=== PATIENT | male | born 1980 | race Caucasian/White ===

== ENCOUNTER 2017-01-01 17:07 | Inpatient (IN) | payer BC ==
[2017-01-01] MEDS ORDERED: Sodium Chloride 0.9% 1,000 ML IV ONE (18:59)
[2017-01-01 19:32] LABS: CHLORIDE,CL 97 mmol/L (101-111); SODIUM,NA 134 mmol/L (135-145)
[2017-01-01] MEDS ORDERED: Dexamethasone 4 MG/ML SDV IVPUSH ONE ×2 (19:56→22:10)
[2017-01-01] MEDS: Dexamethasone 4 MG/ML SDV IVPUSH ONE ×2 (19:56→19:59)
[2017-01-01] MEDS ORDERED: cefTRIAXone 1 GM in Sodium Chloride 0.9% 50 ML IV ONE (20:55)
[2017-01-01] MEDS ORDERED: Ampicillin/Sulbactam Na 3 GM in Sodium Chloride 0.9% 100 ML IV ONE (21:15)
--- NOTE | 2017-01-01 21:40 | EDM.PDOC ---
ED HPI GENERAL MEDICAL PROBLEM - General Chief Complaint: General Stated Complaint: ALLERGIC REACTION AIRWAY STARTING TO GET BLOCKED Time Seen by Provider: 01/01/17 19:05 Source of Information: Reports: Patient History Limitations: Reports: No Limitations - History of Present Illness INITIAL COMMENTS - FREE TEXT/NARRATIVE: ED with c/o difficulty swallowing , swelling left jaw , difficult to open mouth. low grade temp tonight 100 at home. No difficulty with breathing No recent sore throat or dental problems. Onset: other (yesterday) Location: Reports: head, face Quality: Reports: Throbbing Severity: moderate Worsens with: Reports: Eating Associated Symptoms: Denies: chest pain, cough, cough w sputum, diaphoresis, headaches, malaise, nausea/vomiting, shortness of breath, weakness Oral/Mouth Pain Score (Numeric/FACES): 5 - Related Data Allergies Allergy/AdvReac Type Severity Reaction Status Date / Time No Known Allergies Allergy Verified 01/01/17 18:27 Home Meds: Home Meds . [No Known Home Meds] 01/01/17 [History] Past Medical History HEENT History: Reports: None Cardiovascular History: Reports: None Respiratory History: Reports: None Gastrointestinal History: Reports: None Genitourinary History: Reports: None Musculoskeletal History: Reports: None Neurological History: Reports: None Psychiatric History: Reports: None Endocrine/Metabolic History: Reports: None Hematologic History: Reports: None Immunologic History: Reports: None Oncologic (Cancer) History: Reports: None Dermatologic History: Reports: None - Past Surgical History Head Surgeries/Procedures: Reports: None Social & Family History - Tobacco Use Smoking Status *Q: Current Every Day Smoker Years of Tobacco use: 20 Packs/Tins Daily: 0.5 Second Hand Smoke Exposure: No - Caffeine Use Caffeine Use: Reports: Coffee, Soda, Tea - Recreational Drug Use Recreational Drug Use: No ED ROS GENERAL - Review of Systems Review Of Systems: See Below Constitutional: Reports: Chills HEENT: Reports: Other (left jaw swollen pain, left side of neck swollen tender) Respiratory: Reports: No Symptoms Cardiovascular: Reports: No Symptoms Endocrine: Reports: No Symptoms GI/Abdominal: Reports: No Symptoms Musculoskeletal: Reports: No Symptoms, Other (achy 2 days ago) Skin: Reports: No Symptoms Neurological: Reports: No Symptoms ED EXAM, GENERAL - Physical Exam Exam: See Below Exam Limited By: No Limitations General Appearance: Alert, Moderate Distress Eye Exam: Bilateral Eye: PERRL Ears: Normal External Exam, Normal TMs Nose: Normal Inspection, Normal Mucosa Throat/Mouth: Inflammation, Other (swelling left floor of mouth, tongue wnl, dentation fair, no obvious signs of abscess, limited exam as patient unable to fully open mouth. ). No: Normal Inspection Head: Atraumatic, Normocephalic, Facial Swelling, Facial Tenderness (left lower jaw) Neck: Lymphadenopathy (L), Other (prominent submandibular glands, tender) Respiratory/Chest: No Respiratory Distress, Lungs Clear, Normal Breath Sounds Cardiovascular: Normal Peripheral Pulses, Regular Rate, Rhythm GI/Abdominal: Normal Bowel Sounds Back Exam: Normal Inspection Extremities: Normal Inspection, Normal Range of Motion Neurological: Alert, Oriented, Normal Cognition Psychiatric: Normal Affect, Normal Mood Skin Exam: Warm, Dry, Intact, Normal Color. No: No Rash, Petechiae Course - Vital Signs Last Recorded V/S: Last Vital Signs Temp 97.6 F 01/01/17 18: Pulse 83 01/01/17 20:29 Resp 18 01/01/17 20:29 BP 151/90 H 01/01/17 20:29 Pulse Ox 100 01/01/17 20:29 - Orders/Labs/Meds Orders: Active Orders 24 hr Category Date Time Status CULTURE BLOOD [BC] Stat Lab 01/01/17 19:36 Received CULTURE BLOOD [BC] Stat Lab 01/01/17 19:40 Received Ampicillin/Sulbactam Na [Unasyn] 3 gm Med 01/02/17 03:00 Active Sodium Chloride 0.9% [Normal Saline] 100 ml IV Q6H Blood Culture x2 Reflex Set [OM.PC] Stat Oth 01/01/17 19:16 Ordered Medication Orders Acetaminophen (Tylenol) 650 mg PO Q4H PRN PRN Reason: Pain (Mild 1-3)/fever Hydrocodone Bitart/Acetaminophen ([place] 325-10 Mg) 1 tab PO Q4H PRN PRN Reason: Pain (moderate 4-6) Enoxaparin Sodium (Lovenox) 40 mg SUBCUT DAILY [facility] Ampicillin Sodium/Sulbactam (Sodium 3 gm/ Sodium Chloride) 100 mls @ 100 mls/ hr IV Q6H JONATHAN Sodium Chloride (Normal Saline) 1,000 mls @ 125 mls/hr IV ASDIRECTED JONATHAN Morphine Sulfate (Morphine) 2 mg IVPUSH Q2H PRN PRN Reason: Pain (severe 7-10) Ondansetron HCl (Zofran) 4 mg IVPUSH Q6H PRN PRN Reason: Nausea/Vomiting Polyethylene Glycol (Miralax) 17 gm PO DAILY PRN PRN Reason: Constipation Promethazine HCl (Phenergan) 12.5 mg IM Q6H PRN PRN Reason: Nausea/Vomiting Zolpidem Tartrate (Ambien) 5 mg PO BEDTIME PRN PRN Reason: Sleep Labs: Laboratory Tests 01/01/17 01/01/17 01/01/17 Range/Units 19:04 19:04 19:04 WBC 21.4 H (5.0-10.0) 10^3/uL RBC 5.40 (4.6-6.2) 10^6/uL Hgb 15.8 (14.0-18.0) g/dL Hct 46.4 (40.0-54.0) % MCV 85.9 (80-100) fL MCH 29.3 (27.0-34.0) pg MCHC 34.1 (33.0-35.0) g/dL Plt Count 219 (150-450) 10^3/uL Neut % (Auto) 81.8 H (42.2-75.2) % Lymph % (Auto) 8.1 L (20.5-50.1) % [place] % (Auto) 9.5 H (2-8) % Eos % (Auto) 0.3 L (1.0-3.0) % Baso % (Auto) 0.3 (0.0-1.0) % Sodium 134 L (135-145) mmol/L Potassium 3.7 (3.6-5.0) mmol/L Chloride 97 L (101-111) mmol/L Carbon Dioxide 28.0 (21.0-31.0) mmol/L Anion Gap 12.7 BUN 7 (7-18) mg/dL Creatinine 0.7 (0.6-1.3) mg/dL Est Cr Clr Drug Dosing 177.72 mL/min Estimated GFR (MDRD) > 60 BUN/Creatinine Ratio 10.00 Glucose 92 (74-105) mg/dL Lactic Acid (0.5-2.2) mmol/L Calcium 9.3 (8.4-10.2) mg/dl Total Bilirubin 1.5 H (0.2-1.0) mg/dL AST 19 (10-42) IU/L ALT 17 (10-60) IU/L Alkaline Phosphatase 85 (42-121) IU/L C-Reactive Protein > 20.0 H (0.0-1.3) mg/dL Total Protein 8.2 (6.7-8.2) g/dl Albumin 4.6 (3.2-5.5) g/dl Globulin 3.6 Albumin/Globulin Ratio 1.28 Amylase (28-100) U/L Lipase (22-51) U/L 01/01/17 01/01/17 Range/Units 19:04 19:36 WBC (5.0-10.0) 10^3/uL RBC (4.6-6.2) 10^6/uL Hgb (14.0-18.0) g/dL Hct (40.0-54.0) % MCV (80-100) fL MCH (27.0-34.0) pg MCHC (33.0-35.0) g/dL Plt Count (150-450) 10^3/uL Neut % (Auto) (42.2-75.2) % Lymph % (Auto) (20.5-50.1) % [place] % (Auto) (2-8) % Eos % (Auto) (1.0-3.0) % Baso % (Auto) (0.0-1.0) % Sodium (135-145) mmol/L Potassium (3.6-5.0) mmol/L Chloride (101-111) mmol/L Carbon Dioxide (21.0-31.0) mmol/L Anion Gap BUN (7-18) mg/dL Creatinine (0.6-1.3) mg/dL Est Cr Clr Drug Dosing mL/min Estimated GFR (MDRD) BUN/Creatinine Ratio Glucose (74-105) mg/dL Lactic Acid 0.9 (0.5-2.2) mmol/L Calcium (8.4-10.2) mg/dl Total Bilirubin (0.2-1.0) mg/dL AST (10-42) IU/L ALT (10-60) IU/L Alkaline Phosphatase (42-121) IU/L C-Reactive Protein (0.0-1.3) mg/dL Total Protein (6.7-8.2) g/dl Albumin (3.2-5.5) g/dl Globulin Albumin/Globulin Ratio Amylase 25 L (28-100) U/L Lipase 17 L (22-51) U/L Meds: Medications Generic Name Dose Route Start Last Admin Trade Name Tyrellq PRN Reason Stop Dose Admin Acetaminophen 650 mg 01/01/17 22:54 Tylenol PO Q4H PRN Pain (Mild 1-3)/fever Hydrocodone Bitart/Acetaminophen 1 tab 01/01/17 22:54 [place] 325-10 Mg PO Q4H PRN Pain (moderate 4-6) Enoxaparin Sodium 40 mg 01/02/17 09:00 Lovenox SUBCUT DAILY [facility] Ampicillin Sodium/Sulbactam 100 mls @ 100 mls/hr 01/02/17 03:00 Sodium 3 gm/ Sodium Chloride IV Q6H [facility] Sodium Chloride 1,000 mls @ 125 mls/hr 01/01/17 23:00 Normal Saline IV ASDIRECTED [facility] Morphine Sulfate 2 mg 01/01/17 22:54 Morphine IVPUSH Q2H PRN Pain (severe 7-10) Ondansetron HCl 4 mg 01/01/17 22:54 Zofran IVPUSH Q6H PRN Nausea/Vomiting Polyethylene Glycol 17 gm 01/01/17 22:54 Miralax PO DAILY PRN Constipation Promethazine HCl 12.5 mg 01/01/17 22:54 Phenergan IM Q6H PRN Nausea/Vomiting Zolpidem Tartrate 5 mg 01/01/17 22:54 Ambien PO BEDTIME PRN Sleep Discontinued Medications Generic Name Dose Route Start Last Admin Trade Name Tyrellq PRN Reason Stop Dose Admin Dexamethasone 20 mg 01/01/17 19:17 01/01/17 19:59 Dexamethasone IVPUSH 01/01/17 19:18 Not Given ONETIME ONE Dexamethasone 10 mg 01/01/17 19:56 01/01/17 19:59 Dexamethasone IVPUSH 01/01/17 19:57 10 mg ONETIME ONE Administration Dexamethasone 10 mg 01/01/17 22:10 01/01/17 22:26 Dexamethasone IVPUSH 01/01/17 22:11 10 mg ONETIME ONE Administration Sodium Chloride 1,000 mls @ 999 mls/hr 01/01/17 18:59 01/01/17 19:46 Normal Saline IV 01/01/17 19:59 999 mls/hr .BOLUS ONE Administration Ceftriaxone Sodium 1 gm/ 50 mls @ 100 mls/hr 01/01/17 20:55 01/01/17 21:04 Sodium Chloride IV 01/01/17 21:24 100 mls/hr ONETIME ONE Administration Ampicillin Sodium/Sulbactam 100 mls @ 100 mls/hr 01/01/17 21:15 01/01/17 21: 45 Sodium 3 gm/ Sodium Chloride IV 01/01/17 22:14 100 mls/hr ONETIME ONE Administration - Radiology Interpretation Free Text/Narrative:: CT soft tissue neck with inflammation and swelling submandibular gland, airway patent No signs of ductal stones. No obvious abscess. - Re-Assessments/Exams Free Text/Narrative Re-Assessment/Exam: 01/01/17 Dr. Graham here to assess patient . Accepting for admission Departure - Departure Time of Disposition: 22:40 Disposition: Admitted As Inpatient 68 Condition: good Clinical Impression: Submandibular gland infection Leukocytosis Qualifiers: Leukocytosis type: bandemia Qualified Code(s): D72.825 - Bandemia - Discharge Information - My Orders Last 24 Hours: My Active Orders 01/01/17 19:16 Blood Culture x2 Reflex Set [OM.PC] Stat 01/01/17 19:36 CULTURE BLOOD [BC] Stat 01/01/17 19:40 CULTURE BLOOD [BC] Stat - Assessment/Plan Last 24 Hours: My Active Orders 01/01/17 19:16 Blood Culture x2 Reflex Set [OM.PC] Stat 01/01/17 19:36 CULTURE BLOOD [BC] Stat 01/01/17 19:40 CULTURE BLOOD [BC] Stat
[2017-01-01] MEDS ORDERED: Promethazine 25 MG/ML SDV IM PRN (22:54)
[2017-01-01] MEDS ORDERED: Acetaminophen 325 MG Tab PO PRN (22:54)
[2017-01-01] MEDS ORDERED: Zolpidem 5 MG Tab PO PRN (22:54)
[2017-01-01] MEDS ORDERED: Ondansetron 4 MG/2 ML SDV IVPUSH PRN (22:54)
[2017-01-01] MEDS ORDERED: Polyethylene Glycol 3350 Powder 17 GM Packet PO PRN (22:54)
[2017-01-01] MEDS ORDERED: Morphine 2 MG/ML Syringe IVPUSH PRN (22:54)
[2017-01-01] MEDS ORDERED: Acetaminophen/HYDROcodone 325-10 MG Tab PO PRN (22:54)
[2017-01-01] MEDS ORDERED: Sodium Chloride 0.9% 1,000 ML IV SCH (23:00)
--- NOTE | 2017-01-01 23:07 | PCM.HP ---
H&P History of Present Illness - General Date of Service: 01/01/17 Admit Problem/Dx: Admission Diagnosis/Problem Admission Diagnosis/Problem Facial swelling Source of Information: Patient History Limitations: Reports: No Limitations - History of Present Illness Initial Comments - Free Text/Narative: visit 6-year-old male without significant past medical history presented to the emergency room for having facial swelling and pain, difficulty swallowing, feeling warm and cold. Patient stated since yesterday morning he notes swelling on the left side of his lower jaw and start having difficulty swallowing. The difficulty swallowing progressed and he was only able to drink water and eat soft foods after chewing it for long time. The swelling got worse. He reported left lower jaw pain rated at 5/10, throbbing pain. he denies difficulty breathing, feeling throat is closing, sinus congestion, ear pain, headache, shortness of breath, chest pain, nausea, vomiting, or any other symptoms. in the emergency room he had CT scan of the face which could not exclude submandibular abscess. laboratory workup showed WBC 21.4. Sodium 134. Potassium 3.7. Creatinine 0.7. Lactic acid 0.9. Bilirubin 1.5. CRP more than 20. Patient received 20 mg of Decadron and he felt better afterwards and he was able to swallow better. He also received Rocephin and Unasyn IV and was admitted to the hospital. on exam patient was found to have left lower wisdom teeth caries which patient was not aware of. He denies recent dental work. His breath smelled like feces. Oral/Mouth Pain Score (Numeric/FACES): 5 - Related Data Allergies/Adverse Reactions: Allergies Allergy/AdvReac Type Severity Reaction Status Date / Time No Known Allergies Allergy Verified 01/01/17 18:27 Home Medications: Home Meds . [No Known Home Meds] 01/01/17 [History] Past Medical History HEENT History: Reports: None Cardiovascular History: Reports: None Respiratory History: Reports: None Gastrointestinal History: Reports: None Genitourinary History: Reports: None Musculoskeletal History: Reports: None Neurological History: Reports: None Psychiatric History: Reports: None Endocrine/Metabolic History: Reports: None Hematologic History: Reports: None Immunologic History: Reports: None Oncologic (Cancer) History: Reports: None Dermatologic History: Reports: None - Past Surgical History Head Surgeries/Procedures: Reports: None Social & Family History - Tobacco Use Smoking Status *Q: Current Every Day Smoker Years of Tobacco use: 20 Packs/Tins Daily: 0.5 Second Hand Smoke Exposure: No - Caffeine Use Caffeine Use: Reports: Coffee, Soda, Tea - Recreational Drug Use Recreational Drug Use: No H&P Review of Systems - Review of Systems: Review Of Systems: See Below General: Denies: Night Sweats, Diaphoresis, Weight Loss, Weight Gain HEENT: Denies: Ear Pain, Eye Pain, Headaches, Hearing Changes, Rhinitis, Post Nasal Drip, Sinus Congestion, Vertigo, Visual Changes Pulmonary: Reports: No Symptoms Cardiovascular: Reports: No Symptoms Gastrointestinal: Reports: No Symptoms Genitourinary: Reports: No Symptoms Musculoskeletal: Reports: No Symptoms Skin: Reports: No Symptoms Psychiatric: Reports: No Symptoms Neurological: Reports: No Symptoms Hematologic/Lymphatic: Reports: No Symptoms Immunologic: Reports: No Symptoms Exam - Exam Exam: See Below - Vital Signs Vital Signs: Last Vital Signs Temp 36.4 C 01/01/17 18: Pulse 83 01/01/17 20:29 Resp 18 01/01/17 20:29 BP 151/90 H 01/01/17 20:29 Pulse Ox 100 01/01/17 20:29 Weight: 117.934 kg - Exam General: Alert, Oriented, Cooperative, Mild Distress, Other (his voice was mildly muffled). No: Moderate Distress, Severe Distress, Sedated, Lethargic, Obtunded HEENT: Conjunctiva Clear, EACs Clear, EOMI, Hearing Intact, Mucosa Moist & [place] , Nares Patent, Normal Nasal Septum, Posterior Pharynx Clear, Pupils Equal, Pupils Reactive, TMs Clear, Other (he had significant submandibular swelling, mostly on left side with only mild tenderness. He was not able to open his mouth completely but one could pass one finger and half in his mouth. His left lower wisdom teeth had significant caries with swelling around it. No fluctuation was appreciated), PERRLA Neck: Supple, Trachea Midline, Full Range of Motion. No: JVD Lungs: Clear to Auscultation, Normal Respiratory Effort. No: Decreased Breath Sounds, Crackles, Rales, Rhonchi, Rub, Stridor, Wheezing Cardiovascular: Regular Rate, Regular Rhythm Abdomen: Normal Bowel Sounds, Soft, Pelvis Stable (Male) Exam: Deferred Rectal (Males) Exam: Deferred Back Exam: Normal Inspection, Full Range of Motion Extremities: Normal Inspection, Normal Pulses. No: Clubbing, Cyanosis Neurological: Cranial Nerves Intact, Reflexes Equal Bilateral Neuro Extensive - Mental Status: Alert, Oriented x3, Normal Mood/Affect, Normal Cognition, Memory Intact Neuro Extensive - Motor, Sensory, Reflexes: CN II-XII Intact, Normal Gait, Normal Reflexes Psychiatric: Alert, Normal Affect, Normal Mood - Patient Data Result Diagrams: 01/01/17 19:04 01/01/17 19:04 *Q Meaningful Use (ADM) - VTE *Q VTE Criteria *Q: - Stroke *Q Stroke Criteria *Q: - AMI *Q AMI Criteria *Q: Problem List Initiated/Reviewed/Updated: Yes Orders Last 24hrs: Active Orders 24 hr Category Date Time Status Patient Status [ADT] Routine ADT 01/01/17 22:54 Ordered Intake and Output [RC] QSHIFT Care 01/01/17 22:56 Ordered Oxygen Therapy [RC] PRN Care 01/01/17 22:54 Ordered Pulse Oximetry [RC] CONTINUOUS Care 01/01/17 22:56 Ordered Up ad Tisha [RC] ASDIRECTED Care 01/01/17 22:54 Ordered VTE/DVT Education [RC] PER UNIT ROUTINE Care 01/01/17 22:54 Ordered Vital Signs [RC] Q4H Care 01/01/17 22:54 Ordered Regular Diet [DIET] Diet 01/01/17 Breakfast Ordered BASIC METABOLIC PANEL,BMP [CHEM] AM Lab 01/02/17 05:11 Ordered CBC WITH AUTO DIFF [HEME] AM Lab 01/02/17 05:11 Ordered CRP [C-REACTIVE PROTEIN] [CHEM] AM Lab 01/02/17 05:11 Ordered Acetaminophen [Tylenol] Med 01/01/17 22:54 Ordered 650 mg PO Q4H PRN Acetaminophen/HYDROcodone [[place] 325-10 MG] Med 01/01/17 22:54 Ordered 1 tab PO Q4H PRN Ampicillin/Sulbactam Na [Unasyn] 3 gm Med 01/02/17 00:00 Ordered Sodium Chloride 0.9% [Normal Saline] 100 ml IV Q6HR Enoxaparin [Lovenox] Med 01/02/17 09:00 Ordered 40 mg SUBCUT DAILY Morphine Med 01/01/17 22:54 Ordered 2 mg IVPUSH Q2H PRN Ondansetron [Zofran] Med 01/01/17 22:54 Ordered 4 mg IVPUSH Q6H PRN Polyethylene Glycol 3350 [MiraLAX] Med 01/01/17 22:54 Ordered 17 gm PO DAILY PRN Promethazine [Phenergan] Med 01/01/17 22:54 Ordered 12.5 mg IM Q6H PRN Sodium Chloride 0.9% @ 125 MLS/HR (1000ml) Med 01/01/17 23:00 Ordered Sodium Chloride 0.9% [Normal Saline] 1,000 ml IV ASDIRECTED Zolpidem [Ambien] Med 01/01/17 22:54 Ordered 5 mg PO BEDTIME PRN Resuscitation Status Routine Resus Stat 01/01/17 22:54 Ordered Assessment/Plan Comment:: sepsis, Most likely from dental infection he received 1 L of normal saline in the emergency room as a bolus Unasyn 3 g every 6 hours -Awaiting blood culture results -IV fluid infusion facial infection, most likely from dental infection Treat as above Acetaminophen/hydrocodone for pain as needed Trismus Most likely from dental infection patient received Decadron 20 mg IV in the emergency room Will watch clinically difficulty swallowing from facial infection Treat as above Lovenox for DVT prophylaxis he is full code
[2017-01-02] MEDS ORDERED: Ampicillin/Sulbactam Na 3 GM in Sodium Chloride 0.9% 100 ML IV SCH (03:00)
[2017-01-02] MEDS: Ampicillin/Sulbactam Na 3 GM in Sodium Chloride 0.9% 100 ML IV SCH ×4 (04:12→23:05)
[2017-01-02 06:54] LABS: CHLORIDE,CL 101 mmol/L (101-111); SODIUM,NA 135 mmol/L (135-145)
--- NOTE | 2017-01-02 09:48 | PCM.PN ---
- General Info Date of Service: 01/02/17 Admission Dx/Problem (Free Text): Admission Diagnosis/Problem Admission Diagnosis/Problem Facial swelling Subjective Update: patient is feeling better. He was able to eat regular breakfast and swallow it without significant discomfort. He declined any significant pain. He denies fever, chills, nausea, vomiting, difficulty breathing, shortness breath, chest pain, headache. - Patient Data Vitals - most recent: Last Vital Signs Temp 36.4 C 01/02/17 07:00 Pulse 77 01/02/17 07:00 Resp 20 01/02/17 07:00 BP 119/70 01/02/17 07:00 Pulse Ox 98 01/02/17 07:00 Weight - most recent: 117.934 kg I&O - last 24 hours: Intake & Output 01/01/17 01/02/17 01/02/17 22:59 06:59 14:59 Intake Total 100 822 Balance 100 822 Lab Results last 24 hrs: Laboratory Results - last 24 hr 01/02/17 01/02/17 01/02/17 Range/Units 06:08 06:08 06:08 WBC 17.0 H (5.0-10.0) 10^3/uL RBC 4.73 (4.6-6.2) 10^6/uL Hgb 13.8 L (14.0-18.0) g/dL Hct 41.2 (40.0-54.0) % MCV 87.1 (80-100) fL MCH 29.2 (27.0-34.0) pg MCHC 33.5 (33.0-35.0) g/dL Plt Count 218 (150-450) 10^3/uL Neut % (Auto) 90.9 H (42.2-75.2) % Lymph % (Auto) 5.8 L (20.5-50.1) % [place] % (Auto) 3.1 (2-8) % Eos % (Auto) 0.0 L (1.0-3.0) % Baso % (Auto) 0.2 (0.0-1.0) % Sodium 135 (135-145) mmol/L Potassium 4.0 (3.6-5.0) mmol/L Chloride 101 (101-111) mmol/L Carbon Dioxide 27.0 (21.0-31.0) mmol/L Anion Gap 11.0 BUN 10 (7-18) mg/dL Creatinine 0.7 (0.6-1.3) mg/dL Est Cr Clr Drug Dosing 177.72 mL/min Estimated GFR (MDRD) > 60 Glucose 149 H (74-105) mg/dL Calcium 8.7 (8.4-10.2) mg/dl C-Reactive Protein 18.5 H (0.0-1.3) mg/dL Med Orders - Current: Current Medications Acetaminophen (Tylenol) 650 mg PO Q4H PRN PRN Reason: Pain (Mild 1-3)/fever Hydrocodone Bitart/Acetaminophen ([place] 325-10 Mg) 1 tab PO Q4H PRN PRN Reason: Pain (moderate 4-6) Enoxaparin Sodium (Lovenox) 40 mg SUBCUT DAILY [facility] Ampicillin Sodium/Sulbactam (Sodium 3 gm/ Sodium Chloride) 100 mls @ 100 mls/ hr IV Q6H [facility] Last Admin: 01/02/17 04:12 Dose: 100 mls/hr Morphine Sulfate (Morphine) 2 mg IVPUSH Q2H PRN PRN Reason: Pain (severe 7-10) Ondansetron HCl (Zofran) 4 mg IVPUSH Q6H PRN PRN Reason: Nausea/Vomiting Polyethylene Glycol (Miralax) 17 gm PO DAILY PRN PRN Reason: Constipation Promethazine HCl (Phenergan) 12.5 mg IM Q6H PRN PRN Reason: Nausea/Vomiting Zolpidem Tartrate (Ambien) 5 mg PO BEDTIME PRN PRN Reason: Sleep Discontinued Medications Dexamethasone (Dexamethasone) 20 mg IVPUSH ONETIME ONE Stop: 01/01/17 19:18 Last Admin: 01/01/17 19:59 Dose: Not Given Dexamethasone (Dexamethasone) 10 mg IVPUSH ONETIME ONE Stop: 01/01/17 19:57 Last Admin: 01/01/17 19:59 Dose: 10 mg Dexamethasone (Dexamethasone) 10 mg IVPUSH ONETIME ONE Stop: 01/01/17 22:11 Last Admin: 01/01/17 22:26 Dose: 10 mg Sodium Chloride (Normal Saline) 1,000 mls @ 999 mls/hr IV .BOLUS ONE Stop: 01/01/17 19:59 Last Admin: 01/01/17 19:46 Dose: 999 mls/hr Ceftriaxone Sodium 1 gm/ (Sodium Chloride) 50 mls @ 100 mls/hr IV ONETIME ONE Stop: 01/01/17 21:24 Last Admin: 01/01/17 21:04 Dose: 100 mls/hr Ampicillin Sodium/Sulbactam (Sodium 3 gm/ Sodium Chloride) 100 mls @ 100 mls/ hr IV ONETIME ONE Stop: 01/01/17 22:14 Last Admin: 01/01/17 21:45 Dose: 100 mls/hr Ampicillin Sodium/Sulbactam (Sodium 3 gm/ Sodium Chloride) 100 mls @ 100 mls/ hr IV Q6H JONATHAN Sodium Chloride (Normal Saline) 1,000 mls @ 125 mls/hr IV ASDIRECTED JONATHAN Last Admin: 01/01/17 23:53 Dose: 125 mls/hr - Exam General: alert, oriented, cooperative, no acute distress, other (he looks better today. He is breathing and speaking normally. His facial swelling mildly improved) HEENT: Pupils equal, Pupils reactive, EOMI, Mucous membr. moist/pink, Other (he is able to open his mouth more than yesterday, I was able to see his upper half of uvula and posterior pharynx without tongue depressor. His left lower jaw swelling improved but he still has the same submandibular swelling.) Neck: supple, trachea midline, no JVD Lungs: Clear to auscultation, Normal respiratory effort. No: Decreased breath sounds, Crackles, Rales, Rhonchi, Rub, Stridor, Wheezing Cardiovascular: Regular Rate, Regular Rhythm Abdomen: bowel sounds present, soft, no tenderness, no distension Back Exam: Normal Inspection, Full Range of Motion Extremities: no edema, normal pulses, no tenderness/swelling, no clubbing, no cyanosis Skin: warm, dry, intact Neurological: no new focal deficit Psy/Mental Status: alert, normal affect, normal mood - Problem List Review Problem List Initiated/Reviewed/Updated: Yes - My Orders Last 24 Hours: My Active Orders 01/02/17 04:00 Ampicillin/Sulbactam Na [Unasyn] 3 gm Sodium Chloride 0.9% [Normal Saline] 100 ml IV Q6H 01/03/17 05:11 CBC WITH AUTO DIFF [HEME] AM COMPREHENSIVE METABOLIC PN,CMP [CHEM] AM CRP [C-REACTIVE PROTEIN] [CHEM] AM - Plan Plan:: Sepsis, Most likely from dental infection he received 1 L of normal saline in the emergency room as a bolus -continue Unasyn 3 g every 6 hours -Awaiting blood culture results -stop IV fluid infusion and encourage oral intake Facial infection, most likely from dental infection Treat as above Acetaminophen/hydrocodone for pain as needed Trismus Most likely from dental infection patient received Decadron 20 mg IV in the emergency room Will watch clinically Difficulty swallowing from facial infection Treat as above Dental caries He was advised to call a dentist today and schedule appointment as soon as possible next week. he said he will do the arrangement on his own [employer] for DVT prophylaxis he is full code
[2017-01-02] MEDS: Enoxaparin 40 MG/0.4 ML Syringe SUBCUT SCH (10:02)
[2017-01-03] MEDS ORDERED: Sodium Chloride 0.9% 10 ML Syringe FLUSH PRN (00:22)
[2017-01-03] MEDS: Ampicillin/Sulbactam Na 3 GM in Sodium Chloride 0.9% 100 ML IV SCH ×2 (04:29→10:36)
[2017-01-03 07:16] LABS: CHLORIDE,CL 105 mmol/L (101-111); SODIUM,NA 139 mmol/L (135-145)
[2017-01-03] MEDS: Enoxaparin 40 MG/0.4 ML Syringe SUBCUT SCH ×2 (10:36→10:52)
[2017-01-03 11:45] VITALS: BP 131/76
--- NOTE | 2017-01-03 11:58 | PCM.DCSUM1 ---
Discharge Summary - Hospital Course Free Text/Narrative:: 36-year-old male without significant past medical history presented to the emergency room for having facial swelling and pain, difficulty swallowing, feeling warm and cold. Patient stated the day prior to admission he noticed swelling on the left side of his lower jaw and started having difficulty swallowing. The difficulty swallowing progressed and he was only able to drink water and eat soft foods after chewing it for long time. The swelling got worse. He reported left lower jaw pain rated at 5/10, throbbing pain. he denied difficulty breathing, feeling throat was closing, sinus congestion, ear pain, headache, shortness of breath, chest pain, nausea, vomiting, or any other symptoms. In the emergency room he had CT scan of the face which could not exclude submandibular abscess. on admission laboratory workup showed WBC 21.4. Sodium 134. Potassium 3.7. Creatinine 0.7. Lactic acid 0.9. Bilirubin 1.5. CRP more than 20. Patient received 20 mg of Decadron and he felt better afterwards and he was able to swallow better. in ER he received Rocephin and Unasyn IV and was admitted to the hospital. on exam patient was found to have left lower wisdom teeth caries which patient was not aware of. He denies recent dental work. His breath smelled like feces. he continued on Unasyn. patient dramatically got better and is swelling almost gone. He is eating normally and has no complaint. His WBC continued to be elevated but CRP markedly improved. Patient had set up appointment with dentist on upcoming Thursday. 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 he was discharged on Augmentin. He denies any pain since yesterday plan of care during hospitalization: Sepsis, Most likely from dental infection he received 1 L of normal saline in the emergency room as a bolus Unasyn 3 g every 6 hours blood culture results still showing no growth Facial infection, most likely from dental infection Treat as above Acetaminophen/hydrocodone for pain as needed Trismus resolved Most likely from dental infection patient received Decadron 20 mg IV in the emergency room Will watch clinically Difficulty swallowing from facial infection Treat as above Dental caries He was advised to call a dentist today and schedule appointment as soon as possible next week. 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) Showering/Bathing: May Shower Notify Provider of: Fever, Increased Pain, Swelling and Redness, Nausea and/or Vomiting - Discharge Plan Prescriptions/Med Rec: Amoxicillin/Potassium Clav [Augmentin 875-125 Tablet] 1 each PO Q12H #16 tablet Home Medications: Home Meds Acetaminophen [Tylenol] 650 mg PO Q4H PRN #30 tablet 01/03/17 [Rx] Amoxicillin/Potassium Clav [Augmentin 875-125 Tablet] 1 each PO Q12H #16 tablet 01/03/17 [Rx] Referrals: PCP,Unobtain [Ordering Only Provider] - - General Info Date of Service: 01/03/17 Admission Dx/Problem (Free Text: Admission Diagnosis/Problem Admission Diagnosis/Problem Facial swelling - Review of Systems General: Reports: No Symptoms HEENT: Reports: no symptoms Pulmonary: Reports: no symptoms Cardiovascular: Reports: No Symptoms Gastrointestinal: Reports: No symptoms Genitourinary: Reports: no symptoms Musculoskeletal: Reports: no symptoms Skin: Reports: no symptoms Neurological: Reports: No Symptoms Psychiatric: Reports: no symptoms - Patient Data Vitals - Most Recent: Last Vital Signs Temp 36.7 C 01/03/17 11:44 Pulse 68 01/03/17 11:44 Resp 20 01/03/17 11:44 BP 131/76 01/03/17 11:44 Pulse Ox 98 01/03/17 11:44 Weight - Most Recent: 117.934 kg I&O - Last 24 hours: Intake & Output 01/02/17 01/03/17 01/03/17 22:59 06:59 14:59 Intake Total 1130 451 Balance 1130 451 Lab Results - Last 24 hrs: Laboratory Results - last 24 hr 0501/03/17 01/03/17 Range/Units 06:45 06:45 06:45 WBC 19.3 H (5.0-10.0) 10^3/uL RBC 4.45 L (4.6-6.2) 10^6/uL Hgb 13.0 L (14.0-18.0) g/dL Hct 39.3 L (40.0-54.0) % MCV 88.3 (80-100) fL MCH 29.2 (27.0-34.0) pg MCHC 33.1 (33.0-35.0) g/dL Plt Count 236 (150-450) 10^3/uL Neut % (Auto) 86.0 H (42.2-75.2) % Lymph % (Auto) 7.3 L (20.5-50.1) % [facility] % (Auto) 6.4 (2-8) % Eos % (Auto) 0.1 L (1.0-3.0) % Baso % (Auto) 0.2 (0.0-1.0) % Sodium 139 (135-145) mmol/L Potassium 3.8 (3.6-5.0) mmol/L Chloride 105 (101-111) mmol/L Carbon Dioxide 29.0 (21.0-31.0) mmol/L Anion Gap 8.8 BUN 12 (7-18) mg/dL Creatinine 0.7 (0.6-1.3) mg/dL Est Cr Clr Drug Dosing 177.72 mL/min Estimated GFR (MDRD) > 60 BUN/Creatinine Ratio 17.14 Glucose 118 H (74-105) mg/dL Calcium 8.6 (8.4-10.2) mg/dl Total Bilirubin 0.5 (0.2-1.0) mg/dL AST 13 (10-42) IU/L ALT 16 (10-60) IU/L Alkaline Phosphatase 64 (42-121) IU/L C-Reactive Protein 8.2 H (0.0-1.3) mg/dL Total Protein 6.3 L (6.7-8.2) g/dl Albumin 3.3 (3.2-5.5) g/dl Globulin 3.0 Albumin/Globulin Ratio 1.10 Med Orders - Current: Current Medications Acetaminophen (Tylenol) 650 mg PO Q4H PRN PRN Reason: Pain (Mild 1-3)/fever Hydrocodone Bitart/Acetaminophen ([place] 325-10 Mg) 1 tab PO Q4H PRN PRN Reason: Pain (moderate 4-6) Enoxaparin Sodium (Lovenox) 40 mg SUBCUT DAILY [facility] Last Admin: 01/03/17 10:52 Dose: Not Given Ampicillin Sodium/Sulbactam (Sodium 3 gm/ Sodium Chloride) 100 mls @ 100 mls/ hr IV Q6H [facility] Last Admin: 01/03/17 10:36 Dose: 100 mls/hr Morphine Sulfate (Morphine) 2 mg IVPUSH Q2H PRN PRN Reason: Pain (severe 7-10) Ondansetron HCl (Zofran) 4 mg IVPUSH Q6H PRN PRN Reason: Nausea/Vomiting Polyethylene Glycol (Miralax) 17 gm PO DAILY PRN PRN Reason: Constipation Promethazine HCl (Phenergan) 12.5 mg IM Q6H PRN PRN Reason: Nausea/Vomiting Sodium Chloride (Saline Flush) 10 ml FLUSH ASDIRECTED PRN PRN Reason: Keep Vein Open Last Admin: 01/03/17 04:30 Dose: 10 ml Zolpidem Tartrate (Ambien) 5 mg PO BEDTIME PRN PRN Reason: Sleep Discontinued Medications Dexamethasone (Dexamethasone) 20 mg IVPUSH ONETIME ONE Stop: 01/01/17 19:18 Last Admin: 01/01/17 19:59 Dose: Not Given Dexamethasone (Dexamethasone) 10 mg IVPUSH ONETIME ONE Stop: 01/01/17 19:57 Last Admin: 01/01/17 19:59 Dose: 10 mg Dexamethasone (Dexamethasone) 10 mg IVPUSH ONETIME ONE Stop: 01/01/17 22:11 Last Admin: 01/01/17 22:26 Dose: 10 mg Sodium Chloride (Normal Saline) 1,000 mls @ 999 mls/hr IV .BOLUS ONE Stop: 01/01/17 19:59 Last Admin: 01/01/17 19:46 Dose: 999 mls/hr Ceftriaxone Sodium 1 gm/ (Sodium Chloride) 50 mls @ 100 mls/hr IV ONETIME ONE Stop: 01/01/17 21:24 Last Admin: 01/01/17 21:04 Dose: 100 mls/hr Ampicillin Sodium/Sulbactam (Sodium 3 gm/ Sodium Chloride) 100 mls @ 100 mls/ hr IV ONETIME ONE Stop: 01/01/17 22:14 Last Admin: 01/01/17 21:45 Dose: 100 mls/hr Ampicillin Sodium/Sulbactam (Sodium 3 gm/ Sodium Chloride) 100 mls @ 100 mls/ hr IV Q6H [facility] Sodium Chloride (Normal Saline) 1,000 mls @ 125 mls/hr IV ASDIRECTED [facility] Last Admin: 01/01/17 23:53 Dose: 125 mls/hr - Exam General: Reports: alert, oriented, cooperative, no acute distress. Denies: mild distress, moderate distress, severe distress, sedated, lethargic, obtunded HEENT: Reports: Pupils equal, Pupils reactive, EOMI, Mucous membr. moist/pink, Other (his facial swelling is very minimal. His mouth is normal except for the caries in the left lower wisdom teeth.) Neck: Reports: supple, trachea midline, no JVD Lungs: Reports: Clear to auscultation, Normal respiratory effort. Denies: Decreased breath sounds, Crackles, Rales, Rhonchi, Rub, Stridor, Wheezing Cardiovascular: Reports: Regular Rate Abdomen: Reports: bowel sounds present, soft, no tenderness, no distension (Male) Exam: Deferred Rectal (Males) Exam: Deferred Back Exam: Reports: Normal Inspection, Full Range of Motion Extremities: Reports: no edema Skin: Reports: warm, dry, intact Neurological: Reports: no new focal deficit Psy/Mental Status: Reports: alert, normal affect, normal mood. Denies: agitated , suicidal ideation, homicidal ideation, hallucinations *Q Meaningful Use (DIS) - VTE *Q VTE Criteria *Q: - Stroke *Q Stroke Criteria *Q: - AMI *Q AMI Criteria *Q:
== END 2017-01-03 13:50 | disposition home or self-care (01) | DRG 720 ==
LOC: DL.ED 17:07 → DL.MS 22:23 → UNDOADMIN 22:23 → DL.MS 22:54
PROVIDERS: ADMIT Family Medicine; ATTEND Family Medicine
DX: A41.9 Sepsis, unspecified organism (principal); K04.7 Periapical abscess without sinus; K02.9 Dental caries, unspecified; R25.2 Cramp and spasm; F17.200 Nicotine dependence, unspecified, uncomplicated; R13.10 Dysphagia, unspecified
CPT/HCPCS: 36415; 70490; 80048; 80053; 82150; 83605; 83690; 85025; 86140; 87040; 96361; 96365; 96367; 96375; 96376; 99284; J0295; J0696; J1100; J1650; J7030; J7050